=== PATIENT | male | born 1955 | race African-American/Black ===

== ENCOUNTER 2017-11-19 19:28 | Emergency (ER) | payer OTHER ==
[~2017-11-19 19:28] MED LIST: AMLO10TA2 PO; HYDR25TA5 PO; LOSA50TA PO
[2017-11-19 19:33] VITALS: PULSE 65; RESP 16; O2SAT 97
[2017-11-19 19:38] VITALS: BP 163/96; PULSE 68; RESP 16; O2SAT 98
[2017-11-19] MEDS ORDERED: KETOROLAC TROMETHAMINE 60 MG/2 ML (IM) VIAL IM ONE (19:45)
[2017-11-19] MEDS ORDERED: ORPHENADRINE INJ 60 MG/2 ML AMP IM ONE (19:45)
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
[2017-11-19 21:01] LABS: AUTOMATED NEUTROPHIL # 2.6 TH/MM3 (1.8-7.7); BASOPHIL % 0.6 % (0.0-2.0); EOSINOPHIL # 0.1 TH/MM3 (0-0.4); EOSINOPHIL % 1.5 % (0.0-4.0); HEMOGLOBIN 15.2 GM/DL (13.0-17.0); LYMPH % 37.3 % (9.0-44.0); LYMPHOCYTE # 1.8 TH/MM3 (1.0-4.8); MEAN CELL VOLUME 86.7 FL (80.0-100.0); MEAN CORPUSCULAR HEMOGLOBIN 29.3 PG (27.0-34.0); MEAN CORPUSCULAR HGB CONC 33.8 % (32.0-36.0); MEAN PLATELET VOLUME 7.7 FL (7.0-11.0); MONO % 8.2 % (0.0-8.0); MONOCYTE # 0.4 TH/MM3 (0-0.9); NEUT % 52.4 % (16.0-70.0); PLATELET COUNT 317 TH/MM3 (150-450); RED BLOOD COUNT 5.19 MIL/MM3 (4.50-5.90); RED CELL DISTRIBUTION WIDTH 13.8 % (11.6-17.2); WHITE BLOOD COUNT 4.9 TH/MM3 (4.0-11.0)
[2017-11-19 22:27] LABS: BICARBONATE 29.7 MEQ/L (21.0-32.0); CALCIUM 8.6 MG/DL (8.5-10.1); CREATININE 1.1 MG/DL (0.60-1.30); MAGNESIUM 2.4 MG/DL (1.5-2.5)
[2017-11-19] MEDS ORDERED: IOHEXOL 350 MG/ML 10 ML VIAL (for RAD DIAG) IVCONTRAST ONE (23:20)
--- NOTE | 2017-11-19 23:31 | RADRPT ---
EXAM DATE/TIME: 11/19/2017 22:54 [facility] COMPARISON: No previous studies available for comparison. INDICATIONS : Back pain. IV CONTRAST: 100 cc Omnipaque 350 (iohexol) IV ; Cumulative dose for multiple exams. RADIATION DOSE: 9.91 CTDIvol (mGy) MEDICAL HISTORY : Hypertension. SURGICAL HISTORY : None. ENCOUNTER: Initial ACUITY: 1 day PAIN SCALE: 4/10 LOCATION: Bilateral back TECHNIQUE: Volumetric scanning was performed using a multi-row detector CT scanner. The data was post processed with a variety of visualization algorithms including full volume maximum intensity projection, multi -planar sliding thin slab reformation, curved planar reformation, and surface rendering techniques. Using automated exposure control and adjustment of the mA and/or kV according to patient size, radiat ion dose was kept as low as reasonably achievable to obtain optimal diagnostic quality images. DICOM format image data is available electronically for review and comparison. FINDINGS: LUNGS: There is no consolidation or pneumothorax. No concerning pulmonary nodule is visualized. No pleural fluid is present. MEDIASTINUM: No abnormally enlarged lymph nodes by CT criteria. No axillary or hilar abnormalities are identified. ABDOMEN: The liver and spleen are free of focal defects. Multiple large gallstones with peripheral rim calcif ication measuring up to 2.1 cm in size. The adrenal glands are normal. The kidneys demonstrate no sarita dence of solid renal mass or hydronephrosis. No free fluid or abdominal masses are identified. No par a-aortic adenopathy is seen. PELVIS: No evidence of free fluid or pelvic mass. No abnormally enlarged inguinal or retroperitoneal lymph no geena are present. The bladder is unremarkable. THORACIC AORTA: The thoracic aortic root is normal with two-vessel origin of the great vessels. There is no evidence of aneurysm or dissection. ABDOMINAL AORTA: The aorta is normal in caliber without aneurysm or dissection. The renal arteries are patent bilater ally. The proximal celiac and superior mesenteric arteries are patent and normal in diameter. PELVIC VESSELS: The internal iliac and external iliac vessels are patent without aneurysm or stenosis. CONCLUSION: 1. Normal CT of the thoracic and abdominal aorta. 2. Large peripherally calcified gallstones Herve Justin MD on November 19, 2017 at 23:27 Board Certified Radiologist. This report was verified electronically.
[2017-11-20] MEDS ORDERED: CYCL10TA PO (00:08)
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
[2017-11-20] MEDS ORDERED: IBUPROFEN 600 MG TAB PO ONE (00:15)
[2017-11-20] MEDS ORDERED: CYCLOBENZAPRINE HCL 10 MG TAB PO ONE (00:15)
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
== END 2017-11-20 00:21 | disposition home or self-care (01) ==
LOC: NEPE 19:28
DX: M54.9 Dorsalgia, unspecified (principal); K80.80 Other cholelithiasis without obstruction; I10 Essential (primary) hypertension; Z79.899 Other long term (current) drug therapy; Z88.8 Allergy status to other drugs, medicaments and biological substances
CPT/HCPCS: 71275; 72132; 74174; 80048; 83735; 85025; 96372; 99285; J1885; J2360; Q9967